=== PATIENT | female | born 1965 | race Two or more races ===

== ENCOUNTER 2020-03-09 14:51 | Inpatient (IN) | payer OTHER ==
[~2020-03-09] VITALS: Ht 152.4 cm; Wt 54.0 kg
[~2020-03-09 14:51] MED LIST: ASPIRIN PO
--- NOTE | 2020-03-09 15:46 | NUR ---
PTE ALERTA,ESTABLE Y ORIENTADA.ESTA REFIERE QUE DESDE EL LNUES PASADO SUFRIO UN A CAIDA Y TUVO TRAUMA EN MANO DERECHA.SE JESÚS SIGNOS VITALES Y SE UBICA EN OBSERVACION.
--- NOTE | 2020-03-09 15:49 | NUR ---
SE EDUCA PACIENTE SOBRE EL PROCEDIMIENTO QUE SE LE REALIZARA EN EL HOSPITAL Y ESTA REFIERE ENTENDER.
[2020-03-09] MEDS ORDERED: ULTRAM50 MG PO (18:51)
== END 2020-03-09 22:00 | disposition home or self-care (01) | DRG 512 ==
LOC: ER 14:51 → SEC-K 16:06
PROVIDERS: ADMIT Orthopaedic Surgery; ATTEND Orthopaedic Surgery
PROC: 0PSH04Z Reposition Right Radius with Internal Fixation Device, Open Approach (ICD-10-PCS; principal; 2020-03-09 16:00)
DX: S52.591A Other fractures of lower end of right radius, initial encounter for closed fracture (principal); Z20.822 Contact with and (suspected) exposure to COVID-19; W18.39XA Other fall on same level, initial encounter